=== PATIENT | female | born 1960 | race Caucasian/White ===

== ENCOUNTER → 2019-09-17 14:53 | Outpatient (BNVA) | payer SELFPAY | PROVIDERS: Family Provider Nurse Practitioner Family; PCP Registered Nurse; Visit Provider Nurse Practitioner Family | DX: J11.1 Influenza due to unidentified influenza virus with other respiratory manifestations (principal) | CPT/HCPCS: 87804 ==

== ENCOUNTER → 2020-08-23 10:32 | Outpatient (BNVA) | payer MEDICARE, BC, SELFPAY | PROVIDERS: Family Provider Nurse Practitioner Family; PCP Registered Nurse; Visit Provider Registered Nurse | DX: F41.9 Anxiety disorder, unspecified (principal); R07.9 Chest pain, unspecified; E78.5 Hyperlipidemia, unspecified; Z82.49 Family history of ischemic heart disease and other diseases of the circulatory system; Z12.11 Encounter for screening for malignant neoplasm of colon; Z00.00 Encounter for general adult medical examination without abnormal findings | CPT/HCPCS: 80053; 80061; 81000; 84443; 85025 ==

== ENCOUNTER → 2020-08-24 10:40 | Outpatient (BNVA) | payer MEDICARE, BC, SELFPAY | PROVIDERS: Family Provider Nurse Practitioner Family; PCP Registered Nurse; Visit Provider Registered Nurse | DX: R31.9 Hematuria, unspecified (principal) | CPT/HCPCS: 87086 ==

== ENCOUNTER 2020-09-14 06:22 | Outpatient (CLI) | payer MEDICARE, BC, SELFPAY ==
--- NOTE | 2020-09-14 06:37 | ECG_ITS ---
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 Interpretive Statements NAME OF STUDY: LEXISCAN SESTAMIBI STRESS TEST INDICATION: [Chest Pain, ] Procedure: At the baseline, the blood pressure was 133/92mmHg, with a heart rate of 68 bpm. The electrocardiogram showed normal sinus rhythm, normal with normal ST and T waves. The Lexiscan was infused over a duration of 20 seconds. A total of 0.4 mg of Lexiscan was infused. The stress phase was continued for a total of 5 minutes. Heart rate at the end of stress phase was 84 bpm with a blood pressure 124/79 mmHg. The EKG at the peak infusion revealed sinus rhythm with no significant ST-T wave changes. Sestamibi was injected 20 seconds after Lexiscan infusion. Blood pressure at the end of the recovery phase was 122/84mmHg with a heart rate of 85 bpm. Conclusion: 1. Normal EKG response to Lexiscan infusion. 2. No Lexiscan induced chest pain or cardiac arrhythmia. 3. Normal blood pressure and heart rate response. 4. Sestamibi/sestamibi perfusion scan pending; see separate report. Electronically Signed On 09-26-2020 17:45:01 CDT by Ray Yang M.D. [email or web address]
--- NOTE | 2020-09-14 06:38 | NMCV_ITS ---
NM cyndi perf SPECT r/s* [id number] Luisa No Age: 59 Gender: F : 1960 Exam Date: 09/14/2020 07:48 Ordering Phys: Ray Yang M.D ([email or web address]) Technologist: PATIENCE Arango Exam Location: [facility] Indications: Chest pain STRESS TEST Please see separate stress test report in [facility] for full findings IMAGE PROTOCOL Rest/Stress 1 Lexiscan Day Radiopharmaceutical Dose (mCi) Administration Site Administered by Rest: Tc-99m 10.8 IV PATIENCE Guidry Sestamibi Stress:Tc-99m 32.5 IV PATIENCE Arango Sestamigustavo Rest: 14-Sep-2020 60 Discovery 630 Stress: 14-Sep-2020 45 Discovery 630 0.4mg Lexiscan. Images obtained in supine and prone position. SPECT RESULTS Technical Quality: Good Raw Data Analysis: Subdiaphragmatic activity Image Corrections: No attenuation or motion correction applied Summed Stress Score: 0 Summed Rest Score: 0 Summed Difference Score: 0 PERFUSION FINDINGS SPECT images demonstrate homogeneous tracer distribution throughout the myocardium. FUNCTIONAL RESULTS (calculated via Gated SPECT) Stress Image LV EF (%): 72 Stress EDV (mL):64 TID: 1.24 Stress ESV (mL):18 FUNCTIONAL FINDINGS: There is normal left ventricular systolic function. IMPRESSIONS 1. Normal myocardial perfusion imaging with no evidence of ischemia 2. LV systolic function is normal Ray Yang MD (Electronically Signed) Final Date: 14 September 2020 15:36 S
[2020-09-14 07:01] VITALS: BMI 19.0
--- NOTE | 2020-09-14 08:15 | PC.NURSE ---
On arrival to the [facility] stress room the patient stated that she was under the impression that she was to get a lexiscan today and not walk on the treadmill. Dr. Yang was notified in person by this nurse. Orders received to change from Exercise Sestamibi stress test to Lexiscan Sestamibi stress test.
[2020-09-14] MEDS: regadenoson 0.4 Mg/5 ml Syringe IVP (08:20)
[2020-09-14 08:39] VITALS: BP 122/84; PULSE 81
== END 2020-09-14 06:23 | disposition home or self-care (01) ==
LOC: CDL 06:22
PROVIDERS: PCP Registered Nurse; Visit Provider Internal Medicine
DX: R07.9 Chest pain, unspecified (principal)
CPT/HCPCS: 78452; 93017; A9500; J2785

== ENCOUNTER 2020-09-23 12:45 | Outpatient (CLI) | payer MEDICARE, BC, SELFPAY ==
--- NOTE | 2020-09-23 13:30 | USCV_ITS ---
Luisa No Age: 59 Gender: F : 1960 Exam Date: 09/23/2020 13:15 Ordering Phys: Ray Yang M.D ([email or web address]) Technologist: Lesley Powers Exam Location: [facility] [place] Indication: CHEST PAIN BP: 126 / 82 HR: 75 Rhythm: Sinus Technical Quality: Adequate MEASUREMENTS (Male / Female) Normal Values 2D ECHO LV Diastolic Diameter PLAX 2.4 cm 4.2 - 5.9 / 3.9 - 5.3 cm LV Systolic Diameter PLAX 1.7 cm IVS Diastolic Thickness 1.6 cm 0.6 - 1.0 / 0.6 - 0.9 cm IVS Systolic Thickness 1.9 cm LVPW Diastolic Thickness 1.5 cm 0.6 - 1.0 / 0.6 - 0.9 cm LVPW Systolic Thickness 1.7 cm RV Chamber Size 2.3 cm LVOT Diameter 2.1 cm LV Ejection Fraction 2D Teich 60.4 % LV Ejection Fraction MOD 2C 65.0 % LV Ejection Fraction 2C AL 64.6 % LA Diameter 2.3 cm LA Width 3.2 cm LA Height 2.8 cm RA Width 2.5 cm RA Height 3.4 cm Aorta at Sinotubular Diameter 2.7 cm M-MODE LV Diastolic Diameter MM 4.0 cm 4.2 - 5.9 / 3.9 - 5.3 cm LV Systolic Diameter MM 2.5 cm LV Ejection Fraction MM Teich 66.7 % IVS Diastolic Thickness MM 1.2 cm 0.6 - 1.0 / 0.6 - 0.9 cm IVS Systolic Thickness MM 1.3 cm LVPW Diastolic Thickness MM 1.4 cm 0.6 - 1.0 / 0.6 - 0.9 cm LVPW Systolic Thickness MM 1.5 cm Aortic Annulus Diameter 2.7 cm LA Ao Ratio MM 1.0 MV E Point Septal Separation 0.3 cm DOPPLER AV Peak Velocity 98.0 cm/s LVOT Peak Velocity 92.0 cm/s AV Area Cont Eq vti 2.9 cm squared AV Area Cont Eq pk 3.2 cm squared MV Area PHT 3.5 cm squared Mitral E to A Ratio 1.0 MV E' Velocity 40.5 cm/s Mitral E to MV E' Ratio 6.0 Mitral E to LV E' Lateral Ratio 5.7 Mitral E to LV E' Septal Ratio 6.4 TR Peak Velocity 184.0 cm/s TR Peak Gradient 13.5 mmHg Right Atrial Pressure 3.0 mmHg Pulmonary Artery Systolic Pressu 16.5 mmHg PV Peak Velocity 70.0 cm/s RV Acceleration Time 0.2 s RV Ejection Time 0.3 s RV AcT/ET 0.6 FINDINGS Left Ventricle Normal left ventricular size. LV systolic function is normal with EF of 55-60%. No regional wall motion abnormalities. Normal diastolic filling pattern. Right Ventricle The right ventricle is normal in size and function. Right Atrium The right atrium is normal in size. Left Atrium The left atrium is normal in size. Mitral Valve Structurally normal mitral valve without significant stenosis or prolapse. There is no mitral regurgitation. Aortic Valve Structurally normal aortic valve without significant sclerosis or stenosis. There is no aortic regurgitation. Tricuspid Valve Structurally normal tricuspid valve without significant stenosis. Mild tricuspid regurgitation. RVSP is 20-25mmHg Pulmonic Valve Structurally normal pulmonic valve without significant stenosis. There is no pulmonic regurgitation. Pericardium Normal pericardium without effusion. Aorta Normal ascending aorta dimension. CONCLUSIONS LV systolic function is normal with EF of 55-60% Diastolic function is normal Mild tricuspid regurgitation. Normal RVSP No comparison studies are available Ray Yang MD (Electronically Signed) Final Date: 01 October 2020 18:17 S
== END 2020-09-23 12:46 | disposition home or self-care (01) ==
LOC: CDL 12:46
PROVIDERS: PCP Registered Nurse; Visit Provider Internal Medicine
DX: R07.9 Chest pain, unspecified (principal); I07.1 Rheumatic tricuspid insufficiency
CPT/HCPCS: 93306

== ENCOUNTER → 2020-10-28 08:50 | Outpatient (BNVA) | payer MEDICARE, BC, SELFPAY | PROVIDERS: PCP Registered Nurse; Visit Provider Surgery | DX: Z20.822 Contact with and (suspected) exposure to COVID-19 (principal); Z86.010 Personal history of colon polyps | CPT/HCPCS: 87635 ==

== ENCOUNTER 2020-11-02 08:19 | Day surgery (SDC) | payer MEDICARE, BC, SELFPAY ==
[2020-10-29 14:19] VITALS: BMI 18.8
--- NOTE | 2020-11-02 08:47 | P.ANESASSM_ITS ---
Pre-Anesthetic Assessment Pre-Anesthetic Assessment: Height/Weight: Height 1.63 m Weight 49.895 kg Proposed Procedure: Operation Date: 11/02/20 10:00 Proposed Procedures p Colonoscopy 66193 Z86.010(Not Applicable) - Greg Corea MD Was Beta Gelacio taken within 24 hours: N/A Was Clonidine taken within 24 hours: N/A Social: Social History: Tobacco and No alcohol Exam: Pre-Anes Outpt Exam: alert, oriented x 3 and regular rate & rhythm Airway: Submandibular: WNL Cervical ROM: WNL MP: 2 Dentition: False Pulmonary: Pulmonary: COPD Neuropsych: Neuropsych: Anxiety Anesthetic Plan: ASA status: 3 Anesthesia: MAC Risk of > 500 ml blood loss (7ml/kg in children): No PFSH Anesthesia PFSH: Medical History Anxiety History of colon polyps Insomnia Major depressive disorder, recurrent, mild The administrative codes within the [facility] content you are accessing may have as of 10/14/2020. Please contact your IT Dept/Help Desk and request the latest Regulatory release be installed. IT Dept/Help Desk- Please refer to our FAQ page ([email or web address]) or contact [facility] Customer Support at [email or web address] Surgical History History of colonoscopy with polypectomy (~2018) History of partial hysterectomy 1991 History of rotator cuff surgery History of thyroidectomy, subtotal Family History Other Diabetes Heart disease Social History Smoking and tobacco status: current every day smoker cigarettes Alcohol intake: never Adopted: No Caregiver/support person: Yes Lives independently: No Household members: spouse Marital status: Current occupational status: employed Sexually active: Yes Current gender identity: Female Data Anesthesia Cardiac Studies: No Data to Display
[2020-11-02 09:15] VITALS: BP 134/80; PULSE 81; RESP 18; TEMP 36.7; O2SAT 96
[2020-11-02] MEDS: sodium chloride 0.9% 1,000 ML 30 ML IV (09:30)
--- NOTE | 2020-11-02 10:31 | W.PM.OPSUD ---
Surgery/Procedure H&P Update DATE OF PROCEDURE: November 02, 2020 DATE H&P PERFORMED: 10/18/20 H&P UPDATE INFORMATION: I have reviewed H&P completed within last 30 days, I have examined patient prior to procedure and No changes to prior documentation PREOP DIAGNOSIS: screening colonoscopy PLANNED PROCEDURE: Operation Date: 11/02/20 10:00 Proposed Procedures p Colonoscopy 53250 Z86.010(Not Applicable) - Greg Corea MD
[2020-11-02] MEDS: ondansetron 2 mg/ML SDV 2 mL 4 MG IVP (11:44)
--- NOTE | 2020-11-02 11:54 | ANE.PACU2 ---
Inpatient post-anesthesia follow up: Airway intact: Yes Vital signs: Temperature 98.1 F Pulse Rate 81 Respiratory Rate 18 Blood Pressure 134/80 Pulse Oximetry 96 Oxygen Delivery Me thod Room Air Oxygen Flow Rate Fraction of Inspir ed Oxygen Hydration adequate: Yes Mental status: Baseline
== END 2020-11-02 12:00 | disposition home or self-care (01) ==
PROVIDERS: PCP Registered Nurse; Visit Provider Surgery
PROC: 0DJD8ZZ Inspection of Lower Intestinal Tract, Via Natural or Artificial Opening Endoscopic (ICD-10-PCS; CPT 45378; principal; 2020-11-02 10:00)
DX: Z12.11 Encounter for screening for malignant neoplasm of colon (principal); J44.9 Chronic obstructive pulmonary disease, unspecified; F41.9 Anxiety disorder, unspecified; F33.9 Major depressive disorder, recurrent, unspecified; Z86.010 Personal history of colon polyps; F17.210 Nicotine dependence, cigarettes, uncomplicated
CPT/HCPCS: 45378; 96361; 96374; J2405; J2704; J7030

== ENCOUNTER → 2021-11-08 12:35 | Outpatient (BNVA) | payer MEDICARE, BC, SELFPAY | PROVIDERS: PCP Registered Nurse; Visit Provider Internal Medicine | DX: R07.9 Chest pain, unspecified (principal); F41.9 Anxiety disorder, unspecified; Z82.49 Family history of ischemic heart disease and other diseases of the circulatory system; F17.210 Nicotine dependence, cigarettes, uncomplicated | CPT/HCPCS: 99213 ==

== ENCOUNTER 2022-10-12 14:27 | Outpatient (CLI) | payer MEDICARE, SELFPAY ==
--- NOTE | 2022-10-12 14:49 | XR_ITS ---
WS: [email or web address] Exam: XR cervical spine 3V* [id number] Date/Time of Exam: 10/12/2022 3:06 PM Reason For Exam: S16.1XXA - Strain of muscle, fascia and tendon at neck le... No acute fracture or dislocation. Degenerative disc changes at C4-5 and C5-6 with spondylosis. Mild t o moderate facet DJD at all levels. Cervical alignment is normal. Normal paraspinal soft tissue struc tures. The odontoid is intact. Surgical clips seen in the anterior soft tissues at lower cervical lev els. XR/XR cervical spine 3V* [id number] IMPRESSION: 1. Zlup-[id number]-[id number] degenerative changes at the mid cervical level. No fracture or malalignment.
== END 2022-10-12 14:28 | disposition home or self-care (01) ==
PROVIDERS: PCP Registered Nurse; Visit Provider Registered Nurse
DX: S16.1XXA Strain of muscle, fascia and tendon at neck level, initial encounter (principal); M50.320 Other cervical disc degeneration, mid-cervical region, unspecified level; X58.XXXA Exposure to other specified factors, initial encounter
CPT/HCPCS: 72040

== ENCOUNTER → 2023-02-26 08:59 | Outpatient (BNVA) | payer MEDICARE, SELFPAY | PROVIDERS: PCP Registered Nurse; Visit Provider Registered Nurse | DX: L82.1 Other seborrheic keratosis (principal); Z80.8 Family history of malignant neoplasm of other organs or systems | CPT/HCPCS: 88304 ==

== ENCOUNTER → 2023-03-12 10:21 | Outpatient (BNVA) | payer MEDICARE, SELFPAY | PROVIDERS: PCP Registered Nurse; Visit Provider Registered Nurse | DX: Z82.49 Family history of ischemic heart disease and other diseases of the circulatory system (principal); F41.9 Anxiety disorder, unspecified; R07.9 Chest pain, unspecified | CPT/HCPCS: 80053; 80061; 84443; 85025 ==

== ENCOUNTER 2023-04-30 11:47 | Outpatient (CLI) | payer MEDICARE, SELFPAY ==
--- NOTE | 2023-04-30 11:53 | MM_ITS ---
WS: [email or web address] BILATERAL 3D TOMOSYNTHESIS DIGITAL SCREENING MAMMOGRAPHY WITH CAD CLINICAL INFORMATION: Z12.31 - Encounter for screening mammogram for malignant ... HISTORY: Screening mammogram. No current complaints. COMPARISON: None. TECHNIQUE: Bilateral CC and MLO views. FINDINGS: Scattered fibroglandular densities bilaterally. No suspicious focal mass, asymmetry, calcifications, or architectural distortion. No evidence of malignancy. IMPRESSION: MM/[place] [id number] BI-RADS: 1-Negative FOLLOW UP: 1 Year Follow-up Recommend return to annual screening mammography.
--- NOTE | 2023-04-30 12:30 | CT_ITS ---
WS: [email or web address] LDCT LUNG CANCER SCREENING TECHNIQUE: Noncontrast CT of the chest with coronal and sagittal reformatted images. CLINICAL INFORMATION: Z12.2 - Encounter for screening for malignant neoplasm of... COMPARISON: None. DLP: 44.51 mGy.cm DIvol: Mean CTDIvol: 0.60 (mGy) All CT scans at [facility] use at least one of these dose optimization techniques: automat ed exposure control; mA and/or kV adjustment per patient size (includes targeted exams where dose is matched to clinical indication); or iterative reconstruction. FINDINGS: Advanced chronic emphysematous changes. Fibrosis in the lung apices. 5 mm nodule in the RIGHT middle lobe. 5 mm nodule RIGHT lower lobe laterally. Bibasilar atelectasis. Noncalcified nodule LEFT lower l obe posteriorly measuring 4 mm. Tiny nodule LEFT upper lobe medially measuring 3 mm. Thoracic curve convex RIGHT. Slight ectatic ascending thoracic aorta measuring 3.3 cm. Aortic calcifi cation. No mediastinal or hilar lymphadenopathy. No axillary lymphadenopathy. IMPRESSION: CT/CT lung screening [id number] LUNG-RADS: 2-Benign Appearance or Behavior FOLLOW UP: 12 Month: Continue annual screening with LDCT
--- NOTE | 2023-04-30 13:00 | XR_ITS ---
WS: [email or web address] SCREENING DEXA SCAN [facility] CLINICAL INFORMATION: M81.0 - Age-related osteoporosis without current patholog... COMPARISON: None. FINDINGS: The L1-L4 bone mineral density measures 0.975 g/cm2. This corresponds to a T score score of -1.7 and Z score of 0.3. Left femoral neck bone mineral density measures 0.668 g/cm2. This corresponds to a T score of -2.7 an d Z score of -1.2. Right femoral neck bone mineral density measures 0.686 g/cm2. This corresponds to a T score -2.5of an d Z score of -1.0. Mean femoral neck bone mineral density measures 0.677 g/cm2. This corresponds to a T score of -2.6 an d Z score of -1.1. IMPRESSION: Osteopenia lumbar spine. Osteoporosis femoral necks. Patient's FRAX calculated 10 year probability for major osteoporotic fracture is 11.3% and osteoporot ic hip fracture is 3.7%.
== END 2023-04-30 11:48 | disposition home or self-care (01) ==
PROVIDERS: PCP Registered Nurse; Visit Provider Registered Nurse
DX: Z12.31 Encounter for screening mammogram for malignant neoplasm of breast (principal); Z12.2 Encounter for screening for malignant neoplasm of respiratory organs; Z72.0 Tobacco use; Z13.820 Encounter for screening for osteoporosis; M81.0 Age-related osteoporosis without current pathological fracture; M85.88 Other specified disorders of bone density and structure, other site
CPT/HCPCS: 71271; 77063; 77067; 77080

== ENCOUNTER → 2023-10-11 14:56 | Outpatient (BNVA) | payer MEDICARE, SELFPAY | PROVIDERS: PCP Registered Nurse; Visit Provider Internal Medicine | DX: R07.89 Other chest pain (principal); F41.9 Anxiety disorder, unspecified; Z82.49 Family history of ischemic heart disease and other diseases of the circulatory system; Z72.0 Tobacco use | CPT/HCPCS: 99214 ==

== ENCOUNTER 2023-10-17 10:04 | Outpatient (CLI) | payer MEDICARE, SELFPAY ==
[2023-10-17 10:42] LABS: Chol HDL Ratio 3.68 mg/dL (0.0-4.40); Cholesterol 239 mg/dL (0-200); HDL Cholesterol 65 mg/dL (60-100); LDL Cholesterol Calculated 159 mg/dL (50-129); LDL HDL Ratio 2.45 RATIO (0.00-3.22); Triglycerides 77 mg/dL (0-150)
== END 2023-10-17 10:05 | disposition home or self-care (01) ==
LOC: LAB 10:05
PROVIDERS: PCP Registered Nurse; Visit Provider Internal Medicine
DX: E78.5 Hyperlipidemia, unspecified (principal)
CPT/HCPCS: 36415; 80061

== ENCOUNTER → 2023-12-18 10:18 | Outpatient (BNVA) | payer MEDICARE, SELFPAY | PROVIDERS: PCP Registered Nurse; Referring Provider Registered Nurse; Visit Provider Student in an Organized Health Care Education/Training Program | DX: M12.811 Other specific arthropathies, not elsewhere classified, right shoulder; S46.111A Strain of muscle, fascia and tendon of long head of biceps, right arm, initial encounter; X58.XXXA Exposure to other specified factors, initial encounter | CPT/HCPCS: 73030; 99204 ==

== ENCOUNTER → 2024-08-12 08:14 | Outpatient (BNVA) | payer MEDICARE, SELFPAY | PROVIDERS: PCP Registered Nurse; Visit Provider Student in an Organized Health Care Education/Training Program | DX: M12.811 Other specific arthropathies, not elsewhere classified, right shoulder (principal) | CPT/HCPCS: 73030; 99214 ==

== ENCOUNTER → 2024-10-09 14:32 | Outpatient (BNVA) | payer MEDICARE, SELFPAY | PROVIDERS: PCP Registered Nurse; Visit Provider Internal Medicine | DX: F41.9 Anxiety disorder, unspecified (principal); F17.210 Nicotine dependence, cigarettes, uncomplicated; Z87.898 Personal history of other specified conditions; Z82.49 Family history of ischemic heart disease and other diseases of the circulatory system; I10 Essential (primary) hypertension; Z13.1 Encounter for screening for diabetes mellitus | CPT/HCPCS: 80053; 80061; 83036; 85025; 99214 ==

== ENCOUNTER 2024-10-28 11:11 | Outpatient (CLI) | payer MEDICARE, SELFPAY ==
--- NOTE | 2024-10-28 11:20 | MM_ITS ---
WS: [email or web address] BILATERAL SCREENING DIGITAL TOMOSYNTHESIS MAMMOGRAM WITH CAD HISTORY: Z12.39 - Encounter for other screening for malignant neop... COMPARISON: 04/30/2023 Bilateral CC and MLO views with tomosynthesis and synthetic mammography submitted. Computer aided detection analyzed. Breast composition: There are scattered areas of fibroglandular density. No suspicious masses, microcalcifications or architectural distortion. MM/MM scr BI tomosynthesis [id number] IMPRESSION: BI-RADS: 1 - Negative. FOLLOW UP: 1 Year Follow-up
== END 2024-10-28 11:12 | disposition home or self-care (01) ==
PROVIDERS: PCP Registered Nurse; Visit Provider Registered Nurse
DX: Z12.31 Encounter for screening mammogram for malignant neoplasm of breast (principal); R92.323 Mammographic fibroglandular density, bilateral breasts
CPT/HCPCS: 77063; 77067

== ENCOUNTER → 2025-01-07 14:58 | Outpatient (CLI) | payer MEDICARE, SELFPAY | LOC: RAD 01-13 12:39 | PROVIDERS: PCP Registered Nurse; Visit Provider Student in an Organized Health Care Education/Training Program | DX: M12.811 Other specific arthropathies, not elsewhere classified, right shoulder (principal) | CPT/HCPCS: 99213 ==

== ENCOUNTER 2025-02-09 14:46 | Outpatient (CLI) | payer MEDICARE, SELFPAY ==
--- NOTE | 2025-02-09 15:00 | CT_ITS ---
WS: [email or web address] LDCT LUNG CANCER SCREENING HISTORY: z87.891 TECHNIQUE: Axial imaging performed from the apices to 1 cm below the costophrenic angles. Coronal and sagittal reformats are submitted with axial MIP series. All CT scans at [facility] use at least one of these dose optimization techniques: automated exposure control; mA and/or kV adjustment per patient size (includes targeted exams where dose is matched to clinical indication); or iterative reconstruction. DLP: 44.01 mGy.cm DIvol: Mean CTDIvol: 0.70 (mGy) COMPARISON: 04/30/2023 Diagnostic quality: Satisfactory Lungs: Hyperexpanded lungs with advanced centrilobular emphysema. Biapical pleural thickening and scarring and fibrosis. Stable 3 mm noncalcified nodule periphery LEFT lower lobe. 3 mm RIGHT lower lobe pulmonary nodule, image 174 series 4. Stable 5 mm nodule anterior RIGHT middle lobe. Heart: Normal size heart with no pericardial effusion.. Other findings: Mild atherosclerosis aorta. Mild ectasia. No aneurysmal dilatation aorta. No pathologically enlarged lymph nodes. CT/CT lung screening [id number] IMPRESSION: LUNG-RADS: 2-Benign Appearance or Behavior FOLLOW UP: 12 Month: Continue annual screening with LDCT OTHER FINDINGS (S MODIFIER): None.
== END 2025-02-09 14:47 | disposition home or self-care (01) ==
LOC: RAD 14:47
PROVIDERS: PCP Registered Nurse; Visit Provider Registered Nurse
DX: Z12.2 Encounter for screening for malignant neoplasm of respiratory organs (principal); R91.8 Other nonspecific abnormal finding of lung field; Z87.891 Personal history of nicotine dependence
CPT/HCPCS: 71271

== ENCOUNTER 2025-06-02 07:48 | Outpatient (CLI) | payer MEDICARE, SELFPAY ==
--- NOTE | 2025-06-02 08:00 | US_ITS ---
WS: [email or web address] ULTRASOUND ABDOMEN CLINICAL INFORMATION: R10.32 - Left lower quadrant pain COMPARISON: None. FINDINGS: Liver Size: Normal. Craniocaudal length: 13.4 cm. Echogenicity: Normal. Surface nodularity: None. Mass (size and location): None. Normal hepatopetal flow in the main portal vein Bile ducts Intrahepatic ducts: Normal. Common bile duct diameter: 0.1 cm. Gallbladder Cholesterolosis. Gallstones: None. Gallbladder sludge: None. Pericholecystic fluid: None. Sonographic Keller sign: Absent. Pancreas Normal as visualized. Spleen Splenomegaly: None. Craniocaudal length: 5.8 cm. Right kidney: Suggestion of mild RIGHT hydronephrosis although not well evaluated. Recommend further evaluation with CT. Size: 10.3 cm x 4.2 cm x 4.2 cm Left kidney: Normal. Hydronephrosis: None. Size: 11.3 cm x 4.5 cm x 3.6 cm. Abdominal aorta and IVC Visualized portions are normal. Ascites: None. Moderate aortic atheromatous disease US/US abdomen complete* [id number] IMPRESSION: Technically difficult study due to body habitus 1. Suggestion of mild RIGHT hydronephrosis with pelvocaliectasis and proximal ureterectasis although not well evaluated. Recommend further evaluation with no ncontrast CT abdomen pelvis. 2. No hydronephrosis in the LEFT kidney. 3. Moderate aortic atheromatous disease. 4. Normal liver. 5. Mild gallbladder wall thickening with cholesterolosis
--- NOTE | 2025-06-02 08:45 | US_ITS ---
WS: [email or web address] US pelvic complete* [id number] HISTORY: R10.32 - Left lower quadrant pain COMPARISON: None available. Uterus and neither ovary are identified. There is a very large amount of bowel gas throughout the pelvis. Patient has declined transvaginal imaging. No ascites identified. There is a large amount of peristalsing bowel. The inguinal canals were not evaluated for hernia. US/US pelvic complete* [id number] IMPRESSION: 1. Status post hysterectomy. Neither ovary identified. 2. No free fluid. 3. There is a large amount of peristalsing bowel. No hernia is identified by u ltrasound. If there is continued concern for LEFT lower quadrant hernia recomme nd follow-up CT abdomen pelvis.
== END 2025-06-02 07:49 | disposition home or self-care (01) ==
LOC: RAD 07:51
PROVIDERS: PCP Registered Nurse; Visit Provider Registered Nurse
DX: R10.32 Left lower quadrant pain (principal); K82.4 Cholesterolosis of gallbladder; Z90.710 Acquired absence of both cervix and uterus; R93.89 Abnormal findings on diagnostic imaging of other specified body structures; N28.89 Other specified disorders of kidney and ureter; I70.0 Atherosclerosis of aorta
CPT/HCPCS: 76700; 76856

== ENCOUNTER 2025-06-22 09:20 | Outpatient (CLI) | payer MEDICARE, SELFPAY ==
--- NOTE | 2025-06-22 09:30 | CT_ITS ---
WS: [email or web address] CT ABDOMEN AND PELVIS NONCONTRAST HISTORY: N13.30 - Unspecified hydronephrosis TECHNIQUE: Imaging performed through the abdomen and pelvis. Coronal and sagittal reformats are submitted. All CT scans at [facility] use at least one of these dose optimization techniques: automated exposure control; mA and/or kV adjustment per patient size (includes targeted exams where dose is matched to clinical indication); or iterative reconstruction. DLP: 220.98 mGy.cm COMPARISON: Ultrasound 06/02/2025 Lower thorax: Lung bases are clear. Visualized heart is normal. No hiatal hernia. Liver: Normal size liver. No mass or bile duct dilatation. Gallbladder: Normal gallbladder. No pericholecystic fluid or cholelithiasis. No gallbladder wall thickening. Pancreas: Limited visualization. Spleen: Normal. Adrenal glands: Low-attenuation of the RIGHT adrenal gland, suspect adenoma measuring 1.8 x 0.9 cm. Mild LEFT adrenal thickening. Right kidney: Normal size kidney. Small extrarenal pelvis. No hydronephrosis. Left kidney: Normal size kidney. Hyperdense 4 mm nodule in the posterior kidney is probably hemorrhagic cyst. Cannot further evaluate due to its small size and no contrast. Aorta: Moderate atherosclerosis abdominal aorta with no aneurysm. No free fluid, intraperitoneal air or significant lymphadenopathy. GI tract: No obstruction. No colitis. Abdominal wall: Negative. No hernia. Pelvis: Nondistended urinary bladder. No free fluid or adenopathy. Osseous structures: Unremarkable. CT/CT kidney stone [id number] IMPRESSION: 1. Extrarenal pelvis RIGHT kidney. No renal obstruction. 2. No LEFT renal obstruction. 3. Moderate atherosclerosis aorta. 4. Hyperdense cortical nodule 4 mm LEFT kidney. Too small to characterize. 5. No GI tract obstruction.
== END 2025-06-22 09:21 | disposition home or self-care (01) ==
LOC: RAD 09:20
PROVIDERS: PCP Registered Nurse; Visit Provider Registered Nurse
DX: N13.30 Unspecified hydronephrosis (principal); I70.0 Atherosclerosis of aorta; N28.89 Other specified disorders of kidney and ureter; R93.422 Abnormal radiologic findings on diagnostic imaging of left kidney
CPT/HCPCS: 74176